=== PATIENT | female | born 1990 | race Hispanic/Latino ===

== ENCOUNTER 2017-10-18 15:18 | Emergency (ER) | payer MEDICAID ==
[2017-10-18] MEDS ORDERED: ACETAMINOPHEN EXTRA STRENGTH 500 MG TABLET ONE (15:39)
[2017-10-18 15:43] LABS: APPEARANCE,URINE SL CLOUDY (CLEAR); BILIRUBIN,URINE NEGATIVE (NEGATIVE); GLUCOSE, URINE (UA) NEGATIVE (NEGATIVE); KETONES,URINE NEGATIVE (NEGATIVE); LEUKOCYTE ESTERASE ,URINE MODERATE (NEGATIVE); NITRATE,URINE NEGATIVE (NEGATIVE); OCCULT BLOOD,URINE SMALL (NEGATIVE); PROTEIN,URINE NEGATIVE (NEGATIVE); UROBILINOGEN,URINE 0.2 mg/dL (0.2-1.0)
[2017-10-18 15:48] LABS: COLOR,URINE STRAW (YELLOW)
[2017-10-18 15:49] LABS: HCG,QUAL RESULT NEGATIVE (NEGATIVE)
[2017-10-18 15:54] LABS: AMPHET/METH SCREEN,URINE NEGATIVE (NEGATIVE); BARBITURATE SCREEN, URINE NEGATIVE (NEGATIVE); BENZODIAZEPINES SCREEN,URINE NEGATIVE (NEGATIVE); CANNABINOID SCREEN,URINE NEGATIVE (NEGATIVE); COCAINE SCREEN,URINE NEGATIVE (NEGATIVE); OPIATE SCREEN,URINE NEGATIVE (NEGATIVE); PHENCYCLIDINE SCREEN,URINE NEGATIVE (NEGATIVE)
[2017-10-18 15:58] LABS: BACTERIA,URINE Few /HPF (None Seen)
[2017-10-18 15:59] LABS: SQUAMOUS EPITHELIAL CELL,UR Few /LPF (0-2)
== END 2017-10-18 16:24 | disposition home or self-care (01) ==
LOC: EDH 15:18
DX: G44.209 Tension-type headache, unspecified, not intractable (principal); N39.0 Urinary tract infection, site not specified; Z88.8 Allergy status to other drugs, medicaments and biological substances
CPT/HCPCS: 80305; 81001; 81025

== ENCOUNTER 2018-01-12 19:37 | Emergency (ER) | payer MEDICAID | END 2018-01-12 20:44 | disposition home or self-care (01) | LOC: EDH 19:37 | DX: G44.209 Tension-type headache, unspecified, not intractable (principal); R03.0 Elevated blood-pressure reading, without diagnosis of hypertension; Z90.49 Acquired absence of other specified parts of digestive tract; Z98.890 Other specified postprocedural states; Z88.8 Allergy status to other drugs, medicaments and biological substances ==

== ENCOUNTER 2018-02-03 08:28 | Emergency (ER) | payer MEDICAID ==
[2018-02-03] MEDS ORDERED: ASPIRIN 325 MG TABLET ONE (08:44)
[2018-02-03 08:51] LABS: BASOPHILS % (AUTO) 0.9 % (0.0-5.0); EOSINOPHILS % (AUTO) 2.3 % (0.0-8.0); LYMPHOCYTES % (AUTO) 34.2 % (21.0-51.0); MEAN CORPUSCULAR HGB CONC 34.6 g/dL (32.0-36.0); MEAN CORPUSCULAR VOLUME 89.6 fL (79-99); MONOCYTES % (AUTO) 6.5 % (3.0-13.0); NEUTROPHILS % (AUTO) 56.1 % (40.0-77.0); PLATELET COUNT (AUTO) 341 K/uL (130-400); RED BLOOD CELL COUNT(AUTO) 4.58 MIL/uL (4.00-5.50); RED CELL DISTRIBUTION WIDTH 12.8 % (11.0-15.5); WHITE BLOOD COUNT (AUTO) 7.9 K/uL (4.8-10.8)
[2018-02-03 09:04] LABS: CREATININE 0.8 mg/dL (0.5-1.5); POTASSIUM 4.9 mmol/L (3.5-5.1)
[2018-02-03 09:05] LABS: INR 0.95 (0.85-1.15); PARTIAL THROMBOPLASTIN TIME 27.5 SEC (26.3-35.5)
[2018-02-03 09:09] LABS: ALBUMIN 3.7 g/dL (3.5-5.0); BILIRUBIN,TOTAL 0.5 mg/dL (0.2-1.0); TOTAL PROTEIN, SERUM 8.1 g/dL (6.0-8.3)
[2018-02-03 09:30] LABS: B-TYPE NATRIURETIC PEPTIDE 47 pg/mL (0-100)
[2018-02-03 10:05] LABS: AMPHET/METH SCREEN,URINE NEGATIVE (NEGATIVE); BARBITURATE SCREEN, URINE POSITIVE (NEGATIVE); BENZODIAZEPINES SCREEN,URINE NEGATIVE (NEGATIVE); CANNABINOID SCREEN,URINE NEGATIVE (NEGATIVE); COCAINE SCREEN,URINE NEGATIVE (NEGATIVE); OPIATE SCREEN,URINE NEGATIVE (NEGATIVE); PHENCYCLIDINE SCREEN,URINE NEGATIVE (NEGATIVE)
== END 2018-02-03 10:55 | disposition home or self-care (01) ==
LOC: EDH 08:28
DX: R07.9 Chest pain, unspecified (principal); Z90.49 Acquired absence of other specified parts of digestive tract; Z88.8 Allergy status to other drugs, medicaments and biological substances
CPT/HCPCS: 36415; 71045; 80053; 80305; 82550; 83880; 84484; 84703; 85025; 85610; 85730; 93005; 94761

== ENCOUNTER 2018-03-20 02:25 | Emergency (ER) | payer MEDICAID ==
[2018-03-20 03:10] LABS: APPEARANCE,URINE Cloudy (CLEAR); BILIRUBIN,URINE Negative (NEGATIVE); COLOR,URINE Yellow (YELLOW); GLUCOSE, URINE (UA) Negative (NEGATIVE); HCG,QUAL RESULT NEGATIVE (NEGATIVE); KETONES,URINE Trace mg/dL (NEGATIVE); LEUKOCYTE ESTERASE ,URINE Large (NEGATIVE); NITRATE,URINE Negative (NEGATIVE); OCCULT BLOOD,URINE Negative (NEGATIVE); PROTEIN,URINE Trace (NEGATIVE)
[2018-03-20 03:18] LABS: AMORPHOUS SEDIMENT,UR Moderate /LPF (None Seen); BACTERIA,URINE Many /HPF (None Seen); MUCUS,URINE Few LPF (None Seen); SQUAMOUS EPITHELIAL CELL,UR Many /HPF (0-2)
[2018-03-20] MEDS ORDERED: CEPHALEXIN 500 MG CAPSULE ONE (03:31)
== END 2018-03-20 03:52 | disposition home or self-care (01) ==
LOC: EDH 02:25
DX: N39.0 Urinary tract infection, site not specified (principal); R42 Dizziness and giddiness; Z98.51 Tubal ligation status; Z94.9 Transplanted organ and tissue status, unspecified; Z98.890 Other specified postprocedural states; Z88.8 Allergy status to other drugs, medicaments and biological substances
CPT/HCPCS: 81001; 81025; 87088

== ENCOUNTER 2018-12-15 17:50 | Emergency (ER) | payer MEDICAID, OTHER | END 2018-12-15 18:24 | disposition home or self-care (01) | LOC: EDH 17:50 | DX: N64.4 Mastodynia (principal); Z90.49 Acquired absence of other specified parts of digestive tract; Z98.51 Tubal ligation status; Z88.8 Allergy status to other drugs, medicaments and biological substances | CPT/HCPCS: 99281 ==

== ENCOUNTER 2019-03-22 11:46 | Emergency (ER) | payer MEDICAID | END 2019-03-22 13:47 | disposition home or self-care (01) | LOC: EDH 11:46 | DX: J20.9 Acute bronchitis, unspecified (principal); Z88.8 Allergy status to other drugs, medicaments and biological substances | CPT/HCPCS: 71046; 81025; 87804 ==

== ENCOUNTER 2019-04-26 12:06 | Emergency (ER) | payer MEDICAID ==
[2019-04-26] MEDS ORDERED: ACETAMINOPHEN EXTRA STRENGTH 500 MG TABLET ONE (12:21)
== END 2019-04-26 13:35 | disposition home or self-care (01) ==
LOC: EDH 12:06
DX: J02.9 Acute pharyngitis, unspecified (principal); H92.09 Otalgia, unspecified ear; Z90.49 Acquired absence of other specified parts of digestive tract; Z88.8 Allergy status to other drugs, medicaments and biological substances
CPT/HCPCS: 87880

== ENCOUNTER 2019-04-27 13:34 | Emergency (ER) | payer MEDICAID | END 2019-04-27 13:57 | disposition home or self-care (01) | LOC: EDH 13:34 | DX: J02.9 Acute pharyngitis, unspecified (principal); R13.10 Dysphagia, unspecified; Z90.49 Acquired absence of other specified parts of digestive tract; Z88.8 Allergy status to other drugs, medicaments and biological substances | CPT/HCPCS: 99281 ==

== ENCOUNTER 2019-06-02 19:31 | Emergency (ER) | payer MEDICAID | END 2019-06-02 20:26 | disposition home or self-care (01) | LOC: EDH 19:31 | DX: M94.0 Chondrocostal junction syndrome [Tietze] (principal); F41.9 Anxiety disorder, unspecified; Z90.49 Acquired absence of other specified parts of digestive tract; Z88.8 Allergy status to other drugs, medicaments and biological substances | CPT/HCPCS: 93005 ==

== ENCOUNTER 2019-06-16 14:25 | Emergency (ER) | payer MEDICAID | END 2019-06-16 15:19 | disposition left against medical advice (07) | LOC: EDH 14:25 | DX: R51 Headache (principal); Z88.8 Allergy status to other drugs, medicaments and biological substances; Z53.21 Procedure and treatment not carried out due to patient leaving prior to being seen by health care provider ==

== ENCOUNTER 2019-06-17 12:33 | Emergency (ER) | payer MEDICAID | END 2019-06-17 13:17 | disposition home or self-care (01) | LOC: EDH 12:33 | DX: M62.838 Other muscle spasm (principal); M54.2 Cervicalgia; Z90.49 Acquired absence of other specified parts of digestive tract; Z88.8 Allergy status to other drugs, medicaments and biological substances | CPT/HCPCS: 99281 ==

== ENCOUNTER 2019-08-23 08:58 | Emergency (ER) | payer MEDICAID | END 2019-08-23 09:35 | disposition home or self-care (01) | LOC: EDH 08:58 | DX: R21 Rash and other nonspecific skin eruption (principal); F41.9 Anxiety disorder, unspecified; Z87.09 Personal history of other diseases of the respiratory system; Z88.8 Allergy status to other drugs, medicaments and biological substances; Z90.49 Acquired absence of other specified parts of digestive tract ==

== ENCOUNTER 2019-09-25 12:23 | Emergency (ER) | payer MEDICAID | END 2019-09-25 13:48 | disposition home or self-care (01) | LOC: EDH 12:23 | DX: M62.838 Other muscle spasm (principal); F41.9 Anxiety disorder, unspecified; Z88.8 Allergy status to other drugs, medicaments and biological substances | CPT/HCPCS: 93005 ==

== ENCOUNTER 2019-09-28 15:32 | Emergency (ER) | payer MEDICAID | END 2019-09-28 17:12 | disposition home or self-care (01) | LOC: EDH 15:32 | DX: M54.6 Pain in thoracic spine (principal); M54.2 Cervicalgia; R20.8 Other disturbances of skin sensation; F41.9 Anxiety disorder, unspecified; Z88.8 Allergy status to other drugs, medicaments and biological substances; Z90.49 Acquired absence of other specified parts of digestive tract | CPT/HCPCS: 99281 ==

== ENCOUNTER 2019-11-26 18:57 | Emergency (ER) | payer MEDICAID ==
[2019-11-26] MEDS ORDERED: DEXAMETHASONE SOD PHOSPHATE 4 MG/ML 1ML VIAL ONE (19:15)
[2019-11-26] MEDS ORDERED: OXYMETAZOLINE HCL SPRAY 15 ML BOTTLE ONE (19:15)
[2019-11-26] MEDS ORDERED: KETOROLAC TROMETHAMINE 60 MG/2 ML VIAL ONE (19:16)
== END 2019-11-26 19:57 | disposition home or self-care (01) ==
LOC: EDH 18:57
DX: F41.9 Anxiety disorder, unspecified (principal); Z90.49 Acquired absence of other specified parts of digestive tract; Z88.5 Allergy status to narcotic agent
CPT/HCPCS: 96372 ×2; 99284; J1100; J1885

== ENCOUNTER 2019-11-29 11:53 | Emergency (ER) | payer MEDICAID | END 2019-11-29 13:39 | disposition home or self-care (01) | LOC: EDH 11:53 | DX: R21 Rash and other nonspecific skin eruption (principal); F41.9 Anxiety disorder, unspecified; Z90.49 Acquired absence of other specified parts of digestive tract; Z88.5 Allergy status to narcotic agent | CPT/HCPCS: 99281 ==

== ENCOUNTER 2020-04-23 15:30 | Emergency (ER) | payer MEDICAID | END 2020-04-23 16:53 | disposition home or self-care (01) | LOC: EDH 15:30 | DX: R06.00 Dyspnea, unspecified (principal); F41.9 Anxiety disorder, unspecified; Z90.49 Acquired absence of other specified parts of digestive tract; Z88.5 Allergy status to narcotic agent | CPT/HCPCS: 71045 ==

== ENCOUNTER 2020-04-23 22:45 | Emergency (ER) | payer MEDICAID ==
[2020-04-23 23:08] LABS: APPEARANCE,URINE Cloudy (CLEAR); BILIRUBIN,URINE Negative (NEGATIVE); COLOR,URINE Yellow (YELLOW); GLUCOSE, URINE (UA) Negative (NEGATIVE); KETONES,URINE Negative (NEGATIVE); LEUKOCYTE ESTERASE ,URINE Moderate (NEGATIVE); NITRATE,URINE Negative (NEGATIVE); OCCULT BLOOD,URINE Negative (NEGATIVE); PROTEIN,URINE Negative (NEGATIVE)
[2020-04-23 23:29] LABS: BACTERIA,URINE Few /HPF (None Seen); MUCUS,URINE Few LPF (None Seen); RBC,URINE 0-1 /HPF (0-1); SQUAMOUS EPITHELIAL CELL,UR Moderate /HPF (0-2)
[2020-04-24] LABS: BASOPHILS % (AUTO) 0.7 % (0.0-5.0); EOSINOPHILS % (AUTO) 2.7 % (0.0-8.0); HEMATOCRIT 38.5 % (36-48); LYMPHOCYTES % (AUTO) 38.7 % (21.0-51.0); MEAN CORPUSCULAR HEMOGLOBIN 30.7 pg (27.0-33.0); MEAN CORPUSCULAR HGB CONC 33.8 g/dL (32.0-36.0); MEAN CORPUSCULAR VOLUME 90.8 fL (79-99); MONOCYTES % (AUTO) 7.9 % (3.0-13.0); NEUTROPHILS % (AUTO) 49.7 % (40.0-77.0); PLATELET COUNT (AUTO) 222 K/uL (130-400); RED BLOOD CELL COUNT(AUTO) 4.24 MIL/uL (4.00-5.50); RED CELL DISTRIBUTION WIDTH 13.5 % (11.0-15.5); WHITE BLOOD COUNT (AUTO) 8.7 K/uL (4.8-10.8)
[2020-04-24 00:12] LABS: CREATININE 0.9 mg/dL (0.5-1.5); POTASSIUM 3.9 mmol/L (3.5-5.1)
[2020-04-24] MEDS ORDERED: IOHEXOL 350 MG/ML 100ML INFUS..BTL IV ONE (00:32)
== END 2020-04-24 02:53 | disposition home or self-care (01) ==
LOC: EDH 22:45
DX: F43.9 Reaction to severe stress, unspecified (principal); F41.9 Anxiety disorder, unspecified; Z90.49 Acquired absence of other specified parts of digestive tract; Z88.5 Allergy status to narcotic agent
CPT/HCPCS: 36415; 71045; 71275; 80048; 81001; 81025; 85025; 87077; 87088; 87186; 93005; 99283; 99285; Q9967

== ENCOUNTER 2020-08-28 11:38 | Emergency (ER) | payer MEDICAID ==
[2020-08-28] MEDS ORDERED: LIDOCAINE HCL-MPF 1% 2ML VIAL ONE (13:07)
[2020-08-28] MEDS ORDERED: CEFTRIAXONE SODIUM 1 GM ONE (13:07)
[2020-08-28] MEDS ORDERED: DEXAMETHASONE SOD PHOSPHATE 10MG/ML 1ML VIAL ONE (13:07)
== END 2020-08-28 13:35 | disposition home or self-care (01) ==
LOC: EDH 11:38
DX: J02.9 Acute pharyngitis, unspecified (principal); Z90.49 Acquired absence of other specified parts of digestive tract; Z88.8 Allergy status to other drugs, medicaments and biological substances
CPT/HCPCS: 81025; 87804 ×2; 87880; 96372 ×2; 99284; J0696; J1100; J3490

== ENCOUNTER 2020-10-29 17:58 | Emergency (ER) | payer MEDICAID ==
[2020-10-29 18:19] LABS: APPEARANCE,URINE Clear (CLEAR); BILIRUBIN,URINE Negative (NEGATIVE); COLOR,URINE Yellow (YELLOW); GLUCOSE, URINE (UA) Negative (NEGATIVE); KETONES,URINE Negative (NEGATIVE); LEUKOCYTE ESTERASE ,URINE Small (NEGATIVE); NITRATE,URINE Negative (NEGATIVE); OCCULT BLOOD,URINE Large (NEGATIVE); PROTEIN,URINE Negative (NEGATIVE); UROBILINOGEN,URINE 0.2 mg/dL (0.2-1.0)
[2020-10-29 18:29] LABS: AMPHET/METH SCREEN,URINE NEGATIVE (NEGATIVE); BARBITURATE SCREEN, URINE NEGATIVE (NEGATIVE); BENZODIAZEPINES SCREEN,URINE NEGATIVE (NEGATIVE); CANNABINOID SCREEN,URINE NEGATIVE (NEGATIVE); COCAINE SCREEN,URINE NEGATIVE (NEGATIVE); OPIATE SCREEN,URINE NEGATIVE (NEGATIVE); PHENCYCLIDINE SCREEN,URINE NEGATIVE (NEGATIVE)
[2020-10-29 18:48] LABS: HCG,QUAL RESULT NEGATIVE (NEGATIVE)
[2020-10-29 19:44] LABS: BACTERIA,URINE Rare /HPF (None Seen); SQUAMOUS EPITHELIAL CELL,UR Few /HPF (0-2)
[2020-10-29 19:45] LABS: RBC,URINE 26-50 /HPF (0-1)
== END 2020-10-29 19:34 | disposition home or self-care (01) ==
LOC: EDH 17:58
DX: G56.02 Carpal tunnel syndrome, left upper limb (principal); F41.9 Anxiety disorder, unspecified; Z88.8 Allergy status to other drugs, medicaments and biological substances; Z86.16 Personal history of COVID-19
CPT/HCPCS: 80305; 81001; 81025

== ENCOUNTER 2021-02-07 15:35 | Emergency (ER) | payer MEDICAID ==
[2021-02-07] MEDS ORDERED: ACETAMINOPHEN EXTRA STRENGTH 500 MG TABLET ONE (17:17)
[2021-02-07] MEDS ORDERED: LIDOCAINE HCL 2% VISCOUS 15 ML UDCUP ONE (17:17)
[2021-02-07] MEDS ORDERED: MAG HYDROX/AL HYDROX/SIMETH ES 30 ML SUSP UDCUP ONE (17:17)
== END 2021-02-07 18:13 | disposition home or self-care (01) ==
LOC: EDH 15:35
DX: J02.9 Acute pharyngitis, unspecified (principal); H92.03 Otalgia, bilateral; Z88.8 Allergy status to other drugs, medicaments and biological substances; F41.9 Anxiety disorder, unspecified; Z86.16 Personal history of COVID-19
CPT/HCPCS: 87880

== ENCOUNTER 2022-03-06 09:23 | Emergency (ER) | payer MEDICAID ==
[~2022-03-06] VITALS: Ht 154.9 cm; Wt 100.2 kg
[2022-03-06] MEDS ORDERED: FLUORESCEIN SODIUM 1 STRIP STRIP ONE (09:52)
[2022-03-06] MEDS ORDERED: TETRACAINE HCL 0.5% 4 ML OPHTH SOLN OP SCH (10:00)
[2022-03-06 10:01] VITALS: BP 121/81
== END 2022-03-06 10:25 | disposition home or self-care (01) ==
LOC: EDH 09:23
DX: S05.91XA Unspecified injury of right eye and orbit, initial encounter (principal); Z88.8 Allergy status to other drugs, medicaments and biological substances; Z90.89 Acquired absence of other organs; Z98.890 Other specified postprocedural states; X58.XXXA Exposure to other specified factors, initial encounter; Y93.89 Activity, other specified; Y92.89 Other specified places as the place of occurrence of the external cause; Y99.8 Other external cause status

== ENCOUNTER 2022-07-06 08:10 | Emergency (ER) | payer MEDICAID ==
[~2022-07-06] VITALS: Ht 154.9 cm; Wt 100.7 kg
[2022-07-06 08:41] LABS: BASOPHILS % (AUTO) 0.9 % (0.0-5.0); HEMATOCRIT 41.1 % (36-48); LYMPHOCYTES % (AUTO) 33.3 % (21.0-51.0); MEAN CORPUSCULAR HGB CONC 34.8 g/dL (32.0-36.0); MONOCYTES % (AUTO) 6.1 % (3.0-13.0); NEUTROPHILS % (AUTO) 55.4 % (40.0-77.0); PLATELET COUNT (AUTO) 374 K/uL (130-400); RED BLOOD CELL COUNT(AUTO) 4.62 MIL/uL (4.00-5.50); RED CELL DISTRIBUTION WIDTH 12.2 % (11.0-15.5); WHITE BLOOD COUNT (AUTO) 8.8 K/uL (4.8-10.8)
[2022-07-06 09:08] LABS: APPEARANCE,URINE CLOUDY (CLEAR); BILIRUBIN,URINE NEGATIVE (NEGATIVE); COLOR,URINE LIGHT-YELLOW (YELLOW); GLUCOSE, URINE (UA) NEGATIVE (NEGATIVE); KETONES,URINE NEGATIVE (NEGATIVE); LEUKOCYTE ESTERASE ,URINE 25 Leu/uL (NEGATIVE); NITRATE,URINE NEGATIVE (NEGATIVE); OCCULT BLOOD,URINE NEGATIVE (NEGATIVE); PH,URINE 6.5 (5.0-8.0); PROTEIN,URINE NEGATIVE (NEGATIVE); UROBILINOGEN,URINE 0.2 mg/dL (0.2-1.0)
[2022-07-06 09:10] LABS: BACTERIA,URINE RARE /HPF (None Seen); HCG,QUALITATIVE URINE NEGATIVE (NEGATIVE); MUCUS,URINE RARE LPF (None Seen); SQUAMOUS EPITHELIAL CELL,UR MANY /HPF (0-2)
[2022-07-06 10:29] LABS: POTASSIUM 4.1 mmol/L (3.5-5.1)
[2022-07-06 10:34] LABS: ALBUMIN 3.7 g/dL (3.5-5.0); TOTAL PROTEIN, SERUM 7.5 g/dL (6.0-8.3)
[2022-07-06 10:39] VITALS: BP 132/63
[2022-07-06] MEDS ORDERED: CEPH500B PO (10:44)
== END 2022-07-06 11:42 | disposition home or self-care (01) ==
LOC: EDH 08:10
DX: N39.0 Urinary tract infection, site not specified (principal); Z88.8 Allergy status to other drugs, medicaments and biological substances; Z90.89 Acquired absence of other organs; Z98.890 Other specified postprocedural states
CPT/HCPCS: 36415; 71045; 80053; 81001; 81025; 84484; 85025; 93005

== ENCOUNTER 2022-10-24 19:37 | Emergency (ER) | payer MEDICAID ==
[~2022-10-24 19:37] MED LIST: CEPH500B PO
== END 2022-10-24 20:12 | disposition left against medical advice (07) ==
LOC: EDH 19:37 → LDH 20:48 → UNDOADMOB 20:48
DX: R07.89 Other chest pain (principal); Z53.21 Procedure and treatment not carried out due to patient leaving prior to being seen by health care provider

== ENCOUNTER 2023-05-27 18:40 | Emergency (ER) | payer MEDICAID ==
[~2023-05-27] VITALS: Ht 154.9 cm; Wt 99.8 kg
[2023-05-27 18:44] VITALS: BP 144/95; PULSE 110; RESP 18; O2SAT 98
[2023-05-27 19:09] LABS: SARS-CoV-2, RNA, NAAT NEGATIVE SARS CoV-2 (NEGATIVE)
[2023-05-27 19:14] LABS: INFLUENZA TYPE A Negative For Type A (NEGATIVE); INFLUENZA TYPE B Negative For Type B (NEGATIVE)
[2023-05-28] MEDS ORDERED: IBUP-2070 PO (16:45)
[2023-05-28] MEDS ORDERED: CYCL10TA16 PO (16:45)
== END 2023-05-27 20:46 | disposition left against medical advice (07) ==
LOC: EDH 18:40
DX: R05.9 Cough, unspecified (principal); R09.81 Nasal congestion; Z53.21 Procedure and treatment not carried out due to patient leaving prior to being seen by health care provider; Z20.822 Contact with and (suspected) exposure to COVID-19
CPT/HCPCS: 99281; 87635; 87804 ×2; C9803

== ENCOUNTER 2023-05-28 12:39 | Emergency (ER) | payer MEDICAID ==
[~2023-05-28] VITALS: Ht 154.9 cm; Wt 106.6 kg
[2023-05-28 13:27] LABS: MEAN CORPUSCULAR HEMOGLOBIN 30.9 pg (27.0-33.0); MEAN CORPUSCULAR HGB CONC 34.6 g/dL (32.0-36.0); MEAN CORPUSCULAR VOLUME 89.3 fL (79-99); RED BLOOD CELL COUNT(AUTO) 4.59 MIL/uL (4.00-5.50); RED CELL DISTRIBUTION WIDTH 12.5 % (11.0-15.5); WHITE BLOOD COUNT (AUTO) 9.6 K/uL (4.8-10.8)
[2023-05-28 13:28] LABS: APPEARANCE,URINE CLEAR (CLEAR); BILIRUBIN,URINE NEGATIVE (NEGATIVE); COLOR,URINE LIGHT-YELLOW (YELLOW); GLUCOSE, URINE (UA) NEGATIVE (NEGATIVE); KETONES,URINE NEGATIVE (NEGATIVE); LEUKOCYTE ESTERASE ,URINE NEGATIVE Leu/uL (NEGATIVE); NITRATE,URINE NEGATIVE (NEGATIVE); OCCULT BLOOD,URINE NEGATIVE (NEGATIVE); PROTEIN,URINE NEGATIVE (NEGATIVE); UROBILINOGEN,URINE 0.2 mg/dL (0.2-1.0)
[2023-05-28 13:30] LABS: ADD UA MICROSCOPIC NO
[2023-05-28 13:41] LABS: CREATININE 0.9 mg/dL (0.5-1.5); POTASSIUM 4.2 mmol/L (3.5-5.1)
[2023-05-28 13:46] LABS: ALBUMIN 3.6 g/dL (3.5-5.0); BILIRUBIN,TOTAL 0.3 mg/dL (0.2-1.0); TOTAL PROTEIN, SERUM 7.8 g/dL (6.0-8.3)
[2023-05-28 16:42] LABS: SARS-CoV-2, RNA, NAAT NEGATIVE SARS CoV-2 (NEGATIVE)
[2023-05-28] MEDS ORDERED: IBUP-2070 PO (16:45)
[2023-05-28] MEDS ORDERED: CYCL10TA16 PO (16:45)
[2023-05-28 16:53] VITALS: BP 126/79; PULSE 75; RESP 19; O2SAT 99
== END 2023-05-28 17:16 | disposition home or self-care (01) ==
LOC: EDH 12:39
DX: S29.012A Strain of muscle and tendon of back wall of thorax, initial encounter (principal); Z90.49 Acquired absence of other specified parts of digestive tract; Z20.822 Contact with and (suspected) exposure to COVID-19; X58.XXXA Exposure to other specified factors, initial encounter; Y93.89 Activity, other specified; Y92.89 Other specified places as the place of occurrence of the external cause; Y99.8 Other external cause status
CPT/HCPCS: 99285; 71045; 87635; 80053; 85027; 83605; 81003; 36415; 93005; C9803

== ENCOUNTER 2023-07-03 10:54 | Emergency (ER) | payer MEDICAID ==
[~2023-07-03] VITALS: Ht 154.9 cm; Wt 90.7 kg
[~2023-07-03 10:54] MED LIST changes: +CYCL10TA16 PO; +IBUP-2070 PO
[2023-07-03 13:30] VITALS: BP 123/75; PULSE 77; RESP 16; O2SAT 99
== END 2023-07-03 13:25 | disposition home or self-care (01) ==
LOC: EDH 10:54
DX: S16.1XXA Strain of muscle, fascia and tendon at neck level, initial encounter (principal); S09.90XA Unspecified injury of head, initial encounter; W01.0XXA Fall on same level from slipping, tripping and stumbling without subsequent striking against object, initial encounter; Y93.89 Activity, other specified; Y92.89 Other specified places as the place of occurrence of the external cause; Y99.8 Other external cause status
CPT/HCPCS: 70450; 72125

== ENCOUNTER 2023-08-15 16:43 | Emergency (ER) | payer MEDICAID, OTHER ==
[~2023-08-15] VITALS: Ht 154.9 cm; Wt 99.8 kg
[2023-08-15 17:32] LABS: RAPID GROUP A STREP negative (NEGATIVE)
[2023-08-15 17:40] LABS: INFLUENZA TYPE A Negative For Type A (NEGATIVE); INFLUENZA TYPE B Negative For Type B (NEGATIVE)
[2023-08-15 17:48] LABS: COVID19 (SARS ANTIGEN RAPID) PRESUMPTIVE NEGATIVE (NEGATIVE)
[2023-08-15] MEDS ORDERED: ACETAMINOPHEN 500 MG TABLET ONE (18:12)
[2023-08-15 18:16] VITALS: TEMP 99.9
[2023-08-15] MEDS ORDERED: LORA10TA7 PO (19:36)
[2023-08-15] MEDS ORDERED: BROM118S48 PO (19:36)
[2023-08-15] MEDS ORDERED: AZIT250T9 PO (19:36)
[2023-08-15] MEDS ORDERED: BENZ200C53 PO (19:36)
[2023-08-15] MEDS ORDERED: FLUT16H NASAL (19:36)
[2023-08-15 19:47] VITALS: BP 127/66; PULSE 94; RESP 16; O2SAT 99
== END 2023-08-15 19:49 | disposition home or self-care (01) ==
LOC: EDH 16:43
DX: J00 Acute nasopharyngitis [common cold] (principal); R05.9 Cough, unspecified; R09.3 Abnormal sputum; Z20.822 Contact with and (suspected) exposure to COVID-19; Z79.899 Other long term (current) drug therapy; Z98.890 Other specified postprocedural states; Z88.8 Allergy status to other drugs, medicaments and biological substances; Z90.49 Acquired absence of other specified parts of digestive tract
CPT/HCPCS: 87426; 87804; 87880

== ENCOUNTER 2024-04-13 20:37 | Emergency (ER) | payer OTHER ==
[~2024-04-13] VITALS: Ht 154.9 cm; Wt 104.3 kg
[~2024-04-13 20:37] MED LIST changes: +AZIT250T9 PO; +BENZ200C53 PO; +BROM118S48 PO; +FLUT16H NASAL; +LORA10TA7 PO
[2024-04-13 22:26] LABS: INFLUENZA TYPE A Negative For Type A (NEGATIVE); INFLUENZA TYPE B Negative For Type B (NEGATIVE)
[2024-04-13 22:28] LABS: RAPID GROUP A STREP negative (NEGATIVE)
[2024-04-13 22:32] LABS: SARS-CoV-2, RNA, NAAT POSITIVE SARS CoV-2 (NEGATIVE)
[2024-04-13 23:17] VITALS: BP 154/88; PULSE 88; RESP 20; O2SAT 100
[2024-04-13] MEDS ORDERED: AZIT250T9 PO (23:28)
[2024-04-13] MEDS ORDERED: METH4TAB3 PO (23:28)
== END 2024-04-13 23:33 | disposition home or self-care (01) ==
LOC: EDH 20:37
DX: U07.1 COVID-19 (principal); Z79.899 Other long term (current) drug therapy; Z90.49 Acquired absence of other specified parts of digestive tract; Z98.890 Other specified postprocedural states; Z88.8 Allergy status to other drugs, medicaments and biological substances
CPT/HCPCS: 87635; 87804; 87880

== ENCOUNTER 2024-08-01 13:16 | Emergency (ER) | payer MEDICAID ==
[~2024-08-01] VITALS: Ht 154.9 cm; Wt 99.8 kg
[~2024-08-01 13:16] MED LIST changes: +METH4TAB3 PO
[2024-08-01] MEDS: acetaMINOPHEN 325 MG/10.15ML UDCUP PO ONE (14:24)
[2024-08-01 14:32] LABS: RAPID GROUP A STREP negative (NEGATIVE)
[2024-08-01 14:34] LABS: SARS-CoV-2, RNA, NAAT NEGATIVE SARS CoV-2 (NEGATIVE)
[2024-08-01 14:41] LABS: INFLUENZA TYPE A Negative For Type A (NEGATIVE); INFLUENZA TYPE B Negative For Type B (NEGATIVE)
[2024-08-01] MEDS ORDERED: AMOX500C2 PO (14:46)
[2024-08-01 14:56] VITALS: BP 133/80; PULSE 99; RESP 18; TEMP 98.3; O2SAT 96
== END 2024-08-01 15:00 | disposition home or self-care (01) ==
LOC: EDH 13:16
DX: J32.9 Chronic sinusitis, unspecified (principal); Z20.822 Contact with and (suspected) exposure to COVID-19; Z90.49 Acquired absence of other specified parts of digestive tract; Z98.51 Tubal ligation status; Z79.899 Other long term (current) drug therapy
CPT/HCPCS: 87635; 87804; 87880

== ENCOUNTER 2025-04-20 09:33 | Emergency (ER) | payer MEDICAID ==
[~2025-04-20] VITALS: Ht 157.5 cm; Wt 99.8 kg
[~2025-04-20 09:33] MED LIST changes: +AMOX500C2 PO; +PANT40TA55 PO
[2025-04-20 10:11] LABS: RAPID GROUP A STREP negative (NEGATIVE)
[2025-04-20 10:15] LABS: SARS-CoV-2, RNA, NAAT NEGATIVE SARS CoV-2 (NEGATIVE)
[2025-04-20 10:21] LABS: INFLUENZA TYPE A Negative For Type A (NEGATIVE); INFLUENZA TYPE B Negative For Type B (NEGATIVE)
--- NOTE | 2025-04-20 10:41 | ERN ---
ED Note History of Present Illness Stated Complaint: SORE THROAT Chief Complaint: Sore Throat Time Seen by MD: 09:57 Dictation: PATIENT IS A 34-YEAR-OLD FEMALE COMING IN WITH FLU-LIKE SYMPTOMS TO INCLUDE BILATERAL EAR PAIN SORE THROAT WITH PAINFUL SWALLOWING BODY ACHES FOR THE LAST 2-3 DAYS. NO NAUSEA VOMITING NO DIARRHEA. NO LOSS OF TASTE OR SMELL. SHE DENIES COUGH STATES HER SISTER GAVE HER DOXYCYCLINE TO TAKE THAT WAS LEFTOVER FROM ANOTHER ILLNESS AND SHE HAS BEEN TAKING THAT FOR TWO DAYS WITHOUT RELIEF. SHE HAS NOT BEEN TO SEE HER DOCTOR AT [facility]. DENIES HEARING LOSS Allergies: Coded Allergies: butorphanol (Verified Allergy, Unknown, 06/13/14) Home Meds Active Scripts Azithromycin (Zithromax Tri-Aj) 500 Mg Tablet, 500 MG PO DAILY for 5 Days, #5 TAB Prov:JAIME SMITH NP 04/20/25 Ciprofloxacin HCl/Hc (Cipro Hc Otic Susp) 0.2 %-1 % Otsus, 3 DROP OTIC BID for 7 Days, #10 ML 0 Refills THREE DROPS EACH EAR WITH COTTON TWICE A DAY FOR SEVEN DAYS. Prov:JAIME SMITH NP 04/20/25 Pantoprazole Sodium (Protonix) 40 Mg Ectab, 1 TAB PO DAILY for 30 Days, #30 TAB 0 Refills Prov:JONATAN PERALES MD 01/03/25 Amoxicillin (Amoxicillin) 500 Mg Capsule, 1 CAP PO TID for 10 Days, #30 CAP 0 Refills Prov:JONATAN PERALES MD 08/01/24 Azithromycin (Azithromycin) 250 Mg Tablet, 250 MG PO DAILY for 5 Days, #6 TAB Take 2 250mg tablets on day 1 then take 1 250mg tablets daily for 4 days. Prov:AGNIESZKA DE LEÓN 04/13/24 Methylprednisolone (Medrol) 4 Mg Tab.ds.pk, 4 MG PO AD, #1 PACK Prov:AGNIESZKA DE LEÓN 04/13/24 Loratadine (Loratadine) 10 Mg Tablet, 10 MG PO DAILY, #7 TAB Prov:KEMI CARTER 08/15/23 Azithromycin (Azithromycin) 250 Mg Tablet, 250 MG PO DAILY for 5 Days, #6 TAB Take 2 now then 1 daily until complete. Prov:KEMI CARTER 08/15/23 D-Methorphan Hb/P-Epd HCl/Bpm (Bromfed Dm Cough Syrup) 2 Mg-30 Mg-10 Mg/5 Ml Syrup, 10 ML PO Q4HPRN PRN for COUGH for 10 Days, #100 ML Prov:EMMAKEMI QUINONEZ [facility] 08/15/23 Benzonatate (Benzonatate) 200 Mg Capsule, 200 MG PO TID PRN for COUGH for 14 Days, #42 CAP Prov:KEMI CARTER [facility] 08/15/23 Fluticasone Propionate (Flonase Nasal [place]) 50 Mcg/Actuation [place], 50 MCG NASAL DAILY PRN for NASAL CONGESTION for 10 Days, #1 SPRAY Prov:KEMI CARTER [facility] 08/15/23 Cyclobenzaprine HCl (Flexeril) 10 Mg Tab, 10 MG PO TID, #9 TAB Prov:KEMI CARTER [facility] 05/28/23 Ibuprofen (Ibuprofen) 600 Mg Tablet, 600 MG PO Q6H PRN for PAIN, #30 TAB Prov:KEMI CARTER [facility] 05/28/23 Cephalexin Monohydrate (Keflex) 500 Mg Cap, 500 MG PO TID for 7 Days, #21 CAP Prov:JONATAN PERALES MD 07/06/22 Past Medical History Past Medical History: No Pertinent History Surgical History: Appendectomy, Other, BTL Surgical History Other: d/c Family History: Negative Social History: Negative, Lives with family History: Not Applicable RN Note Reviewed/Agreed w/PFSH: Yes Review of System Dictation CONSTITUTIONAL: NEGATIVE EXCEPT FOR HPI HEAD/FACE: NEGATIVE EXCEPT FOR HPI EENT: NEGATIVE EXCEPT FOR HPI BILATERAL EAR PAIN/SORE THROAT RESPIRATORY: NEGATIVE EXCEPT FOR HPI GASTROINTESTINAL/ABDOMINAL: NEGATIVE EXCEPT FOR HPI GENITOURINARY: NEGATIVE EXCEPT FOR HPI MUSCULOSKELETAL: NEGATIVE EXCEPT FOR HPI INTEGUMENTARY: NEGATIVE EXCEPT FOR HPI NEUROLOGICAL/PSYCH: NEGATIVE EXCEPT FOR HPI HEMATOLOGIC/LYMPHATIC: NEGATIVE EXCEPT FOR HPI ALL SYSTEMS NEGATIVE, EXCEPT NOTED ABOVE. 13 POINT REVIEW OF SYSTEMS ASSESSED AND ALL NEGATIVE EXCEPT FOR ABOVE. Initial Vital Sign VS Vital Signs Date Time Temp Pulse Resp B/P (MAP) Pulse Ox O2 Delivery O2 Flow Rate FiO2 04/20/25 09:35 98.1 85 16 128/80 100 Room Air 0 04/20/25 09:40 21 Physical Exam Dictation VITAL SIGNS REVIEWED GENERAL APPEARANCE: ALERT, ORIENTED X 3, MILD ACUTE DISTRESS, WELL DEVELOPED, NOURISHED. OBESE HEAD AND FACE: NON-TRAUMATIC. EYES: PERRL, PINK CONJUNCTIVAS, EYELID NO TRAUMA, ANTERIOR CHAMBER WITH ARCUS SENILIS. EARS: PINNAS INTACT AND NO SIGNS OF TRAUMA BILATERAL TMS INTACT. BILATERAL OTIC CANALS WITH ERYTHEMA TENDERNESS, NEGATIVE MASTOID PAIN BILATERALLY NOSE: NO DISCHARGE, NO BLEEDING. OROPHARYNX: MOUTH NORMAL, TONGUE PINK, PHARYNX CLEAR, MILD PHARYNGEAL ERYTHEMA, TONSILS NO EXUDATES, NO ABSCESSES NO ROB, MUCOUS MEMBRANE MOIST [place] MIDLINE, VOICE IS CLEAR NECK: SUPPLE, NON-TENDER, NO THYROMEGALY, NO MASSES, NO JVD, NO BRUITS BREAST:DEFERRED CHEST:NO TENDERNESS, NO CREPITUS, NO PARADOXICAL MOVEMENT, NO RETRACTIONS LUNGS:CLEAR, WELL-VENTILATED, SYMMETRIC, NO RALES, NO WHEEZING, NO RHONCHI, NO STRIDOR, GOOD BREATH SOUNDS BILATERALLY HEART: REGULAR RATE, REGULAR RHYTHM, NO MURMUR, NO GALLOPS VASCULAR: NO PERIPHERAL EDEMA, ABDOMEN: SOFT, POSITIVE BOWEL SOUNDS, NONDISTENDED, NO GUARDING, NONTENDER, NO REBOUND, NO MASSES NO HEPATOMEGALY, NO SPLENOMEGALY, NO REYNOSO'S SIGN, NO HERNIAS. RECTAL: DEFERRED GENITAL: DEFERRED NEUROLOGICAL: NORMAL SPEECH, MOTOR FUNCTION INTACT, SENSORY FUNCTION INTACT MUSCULOSKELETAL: NECK NONTENDER, FULL RANGE OF MOTION, BACK NONTENDER, FULL RANGE OF MOTION, EXTREMITIES: NONTENDER, FULL RANGE OF MOTION SKIN: COLOR PINK, DRY, NO TURGOR, NO RASH, NO LACERATIONS, NO ABRASIONS, NO CONTUSIONS. LYMPHATIC: DEFERRED Results (Laboratory/Radiology) Laboratory/Radiology Laboratory Tests Test 04/20/25 09:55 Influenza Type A Antigen Negative For Type A Influenza Type B Antigen Negative For Type B SARS-CoV-2, RNA, NAAT NEGATIVE SARS CoV-2 Group A Streptococcus Rapid negative (NEGATIVE) Labs Reviewed?: Yes ED Course ED Course Orders Procedure Category Date Status Time Covid Rna Naat LAB 04/20/25 Complete 09:53 Influenza Type A & B, LAB 04/20/25 Complete Rapid 09:53 Rapid (Group A Strep) LAB 04/20/25 Complete 09:53 Vital Signs Date Time Temp Pulse Resp B/P (MAP) Pulse Ox O2 Delivery O2 Flow Rate FiO2 04/20/25 11:18 98.1 80 16 121/76 100 Room Air* 0 21 04/20/25 09:40 98.1 85 16 128/80 100 Room Air* 0 21 04/20/25 09:35 98.1 85 16 128/80 100 Room Air 0 Medical Decision Making [facility] 1108/MEDICAL DECISION-MAKING BASED ON EMPIRIC TREATMENT FOR ACUTE PHARYNGITIS UNSPECIFIED SWABS FOR FLU COVID AND STREP NEGATIVE. ADDITIONALLY PATIENT WILL BE TREATED EMPIRICALLY BILATERAL OTITIS EXTERNA SENT HOME WITH THE ANTIBIOTICS AND FOLLOW UP WITH HER DOCTOR AT [facility]. DX & DISP Disposition: Discharge Departure Impression: Primary Impression: Diffuse otitis externa, bilateral Additional Impression: Acute pharyngitis, unspecified Condition: Stable Scripts Azithromycin (Zithromax Tri-Aj) 500 Mg Tablet 500 MG PO DAILY for 5 Days, #5 TAB Prov: JAIME SMITH NP 04/20/25 Ciprofloxacin HCl/Hc (Cipro Hc Otic Susp) 0.2 %-1 % Otsus 3 DROP OTIC BID for 7 Days, #10 ML 0 Refills THREE DROPS EACH EAR WITH COTTON TWICE A DAY FOR SEVEN DAYS. Prov: JAIME SMITH NP 04/20/25 Additional Instructions: FOLLOW-UP WITH PRIMARY CARE PROVIDER IN 1 TO 2 DAYS. TAKE MEDICATIONS DIRECTED HERE IN THE EMERGENCY ROOM. OKAY TO CONTINUE HOME MEDICATIONS UNLESS OTHERWISE DISCUSSED DURING YOUR VISIT IN THE EMERGENCY ROOM TODAY. RETURN TO YOUR NEAREST EMERGENCY ROOM IF SYMPTOMS WORSEN OR IF THERE IS NO IMPROVEMENT. CALL 911 IF YOU NEED IMMEDIATE ASSISTANCE. TAKE TYLENOL OR MOTRIN [id number] NEEDED AND IF NO CONTRAINDICATIONS ARE PRESENT. INCREASE ORAL HYDRATION. A WOUND CULTURE OR URINE CULTURE WAS ORDERED HERE IN THE EMERGENCY ROOM DEPARTMENT PLEASE FOLLOW-UP WITH PRIMARY CARE PROVIDER AND ADVISE THEM TO GET REPEAT PORTS FROM OUR FACILITY. IF YOU HAD ANY VARSHA WRAP/SPLINTS THAT WERE APPLIED HERE, PLEASE DO NOT REMOVE THEM UNTIL YOU SEE YOUR PRIMARY CARE OR SPECIALTY. STOP DOXYCYCLINE. TAKE AZITHROMYCIN DIRECTED UNTIL GONE. USE EAR DROPS TWICE A DAY WITH COTTON DIRECTED FOR THE NEXT SEVEN DAYS. NO Q-TIPS IN EARS AND FOLLOW UP WITH YOUR PRIMARY CARE DOCTOR AT [facility] IN THE NEXT ONE TWO DAYS FOR MANAGEMENT Referrals: SELF,REFERRAL (PCP) Time of Disposition: 11:10 I have reviewed the case, and I agree with, Diagnosis and Plan JAIME SMTIH NP Apr 20, 2025 10:41 YASMANI CRAWFORD DO Apr 20, 2025 14:21
[2025-04-20] MEDS ORDERED: CIPOTIC OTIC (11:12)
[2025-04-20] MEDS ORDERED: AZIT500T2 PO (11:12)
[2025-04-20 11:18] VITALS: BP 121/76; PULSE 80; RESP 16; TEMP 98.1; O2SAT 100
== END 2025-04-20 11:18 | disposition home or self-care (01) ==
LOC: EDH 09:33
DX: H60.93 Unspecified otitis externa, bilateral (principal); J02.9 Acute pharyngitis, unspecified; Z79.899 Other long term (current) drug therapy; Z90.49 Acquired absence of other specified parts of digestive tract; Z98.51 Tubal ligation status; Z20.822 Contact with and (suspected) exposure to COVID-19
CPT/HCPCS: 87635; 87804; 87880; 99283

== ENCOUNTER 2025-04-25 13:16 | Emergency (ER) | payer MEDICAID ==
[~2025-04-25] VITALS: Ht 154.9 cm; Wt 100.7 kg
[~2025-04-25 13:16] MED LIST changes: +AZIT500T2 PO; +CIPOTIC OTIC
--- NOTE | 2025-04-25 13:56 | ERN ---
General Chief Complaint: Sore Throat Stated Complaint: SORE THROAT Time Seen by MD: 13:28 Source: patient History of Present Illness Initial Comments Ms. Crawford is a 34-year-old female who presented to the ED via private vehicle with complaints of sore throat since 20 April. She says she has been taking azithromycin for the last 1 week without any symptomatic relief she also states that she has altered taste sensation on her tongue. She complaints at her throat is irritating. She denies any cough/runny nose. She also reports that her left ear is under pain. In the ED her temperature is 99.2 F and a vitals are stable. Allergies: Coded Allergies: butorphanol (Verified Allergy, Unknown, 06/13/14) Home Meds Active Scripts Azithromycin (Zithromax Tri-Aj) 500 Mg Tablet, 500 MG PO DAILY for 5 Days, #5 TAB Prov:JAIME SMITH NP 04/20/25 Ciprofloxacin HCl/Hc (Cipro Hc Otic Susp) 0.2 %-1 % Otsus, 3 DROP OTIC BID for 7 Days, #10 ML 0 Refills THREE DROPS EACH EAR WITH COTTON TWICE A DAY FOR SEVEN DAYS. Prov:JAIME SMITH NP 04/20/25 Pantoprazole Sodium (Protonix) 40 Mg Ectab, 1 TAB PO DAILY for 30 Days, #30 TAB 0 Refills Prov:JONATAN PERLAES MD 01/03/25 Amoxicillin (Amoxicillin) 500 Mg Capsule, 1 CAP PO TID for 10 Days, #30 CAP 0 Refills Prov:JONATAN PERALES MD 08/01/24 Azithromycin (Azithromycin) 250 Mg Tablet, 250 MG PO DAILY for 5 Days, #6 TAB Take 2 250mg tablets on day 1 then take 1 250mg tablets daily for 4 days. Prov:AGNIESZKA DE LEÓN 04/13/24 Methylprednisolone (Medrol) 4 Mg Tab.ds.pk, 4 MG PO AD, #1 PACK Prov:AGNIESZKA DE LEÓN 04/13/24 Loratadine (Loratadine) 10 Mg Tablet, 10 MG PO DAILY, #7 TAB Prov:KEMI CARTER 08/15/23 Azithromycin (Azithromycin) 250 Mg Tablet, 250 MG PO DAILY for 5 Days, #6 TAB Take 2 now then 1 daily until complete. Prov:KEMI CARTER 08/15/23 D-Methorphan Hb/P-Epd HCl/Bpm (Bromfed Dm Cough Syrup) 2 Mg-30 Mg-10 Mg/5 Ml Syrup, 10 ML PO Q4HPRN PRN for COUGH for 10 Days, #100 ML Prov:KEMI CARTER [facility] 08/15/23 Benzonatate (Benzonatate) 200 Mg Capsule, 200 MG PO TID PRN for COUGH for 14 Days, #42 CAP Prov:KEMI CARTER [facility] 08/15/23 Fluticasone Propionate (Flonase Nasal [place]) 50 Mcg/Actuation [place], 50 MCG NASAL DAILY PRN for NASAL CONGESTION for 10 Days, #1 SPRAY Prov:EMMAKEMI Garg [facility] 08/15/23 Cyclobenzaprine HCl (Flexeril) 10 Mg Tab, 10 MG PO TID, #9 TAB Prov:EMMAKEMI QUINONEZ [facility] 05/28/23 Ibuprofen (Ibuprofen) 600 Mg Tablet, 600 MG PO Q6H PRN for PAIN, #30 TAB Prov:EMMAKEMI QUINONEZ [facility] 05/28/23 Cephalexin Monohydrate (Keflex) 500 Mg Cap, 500 MG PO TID for 7 Days, #21 CAP Prov:JONATAN PERALES MD 07/06/22 Past Medical History Past Medical History: No Pertinent History Past Surgical History: Appendectomy, Other, BTL Surgical History Other: d/c Family History Family History: Negative Social History Social History: Negative, Lives with family Female( History) History: Not Applicable LMP: Apr 12, 2025 ROS Dictation ROS Dictation CONSTITUTIONAL: No chills, no fever, no weakness, no diaphoresis, no malaise. HEAD/FACE: No signs of trauma. EENT: No eye pain, no blurred vision, no tearing, no double vision, ear pain, no ear discharge, no nose pain, no nasal congestion, throat pain, no throat swelling, no mouth pain. RESPIRATORY: No cough, no orthopnea, no SOB, no stridor, no wheezing. CARDIOVASCULAR: No chest pain, no edema, no palpitations, no syncope. GASTROINTESTINAL/ABDOMINAL: No abdominal pain, no constipation, no diarrhea, no nausea, no vomiting. GENITOURINARY: No abnormal discharge, no dysuria, no frequent urination, no hematuria. No complaints of pain in the genitals. MUSCULOSKELETAL: No back pain, no gout, no joint pain, no joint swelling, no muscle pain, no muscle stiffness, no neck pain. INTEGUMENTARY: No change in color, no change in hair/nails, no dryness, no lesion, no lumps, no rash. NEUROLOGICAL/PSYCH: No anxiety, not depressed, no emotional problem, no headache, no numbness, no pre-existing deficit, no history of seizures, no tremors, no weakness. HEMATOLOGIC/LYMPHATIC: Not anemic, no history of blood clots, no apparent bleeding, no bruising, glands not swollen. All Systems Negative, Except as Noted. Physical Exam Physical Exam Dictation Physical Exam Dictation VITAL SIGNS: Reviewed. GENERAL APPEARANCE: Alert, oriented x3 HEAD AND FACE: Non-traumatic. EYES: PERRL, pink conjunctivas, eyelid no trauma, anterior chamber clear. EARS: Pinnas intact and no signs of trauma or erythema. Ear canals clear and no discharge. TMs no erythema. NOSE: No discharge, no bleeding. OROPHARYNX: Mouth normal, teeth no caries, tongue pink. Pharynx erythematous. Tonsils no exudates, no abscesses noted. Mucous membrane moist. NECK: Supple, non-tender, no thyromegaly, no masses, no JVD, no bruits. BREAST: Deferred. CHEST: No tenderness, no crepitus, no paradoxical movement, no retractions. LUNGS: Clear, well-ventilated, symmetric, no rales, no wheezing, no rhonchi, no stridor, good breath sounds bilaterally. HEART: Regular rate, regular rhythm, no murmur, no gallops. VASCULAR: No peripheral edema. ABDOMEN: Soft, positive bowel sounds, nondistended, no guarding, nontender, no rebound, no masses no hepatomegaly, no splenomegaly, no Sharp's sign, no hernias. RECTAL: Deferred. GENITAL: Deferred. NEUROLOGICAL: Normal speech, gross motor function intact, gross sensory function intact. MUSCULOSKELETAL: Neck nontender, full range of motion, back nontender, full range of motion. EXTREMITIES: Nontender, full range of motion. SKIN: Color pink, dry, no turgor, no rash, no lacerations, no abrasions, no contusions. LYMPHATICS: Deferred. Results Laboratory and Microbiology Lab and Micro Result Laboratory Tests Test 04/25/25 14:10 Group A Streptococcus Rapid negative (NEGATIVE) Labs Reviewed?: Yes MDM MDM: Differential diagnosis: URI, COVID, strep, flu Rationale: Tests considered and ordered secondary to shared decision making include: Previous outside records reviewed: Old ER visits. Risk of complication and/or morbidity or mortality of patient management: None Medications-Per medication reconciliation Need for hospitalization: Patient does not meet criteria for hospitalization. Patient is a 34-year-old female coming in complaining of sore throat. She states that she has has a had this for two weeks has been treated with the antibiotics that has not getting any better. Vital signs within normal limits. Patient was evaluated strep has been negative. Patient will be discharged in stable condition with a diagnosis of pharyngitis did advised her appropriate follow up with PCP in 1-2 days. ED Course Orders Procedure Category Date Status Time Rapid (Group A Strep) LAB 04/25/25 Complete 13:39 Dexamethasone 4mg/Ml PHA 04/25/25 Complete 1ml Vial (Dexametha 14:30 Current Medications Medications (Trade) Dose Ordered Sig/Alexus Route PRN Reason Start Time Stop Time Status Last Admin Dose Admin Dexamethasone Sodium Phosphate (dexaMETHasone 4MG/ML 1ML VIAL) 10 mg ONCE ONCE IM 04/25/25 14:30 04/25/25 14:31 DC 04/25/25 14:48 Vital Signs Date Time Temp Pulse Resp B/P (MAP) Pulse Ox O2 Delivery O2 Flow Rate FiO2 04/25/25 13:17 99.1 104 18 148/99 99 Room Air 0 DX & DISP Disposition: Discharge Departure Impression: Primary Impression: Acute pharyngitis, unspecified Condition: Stable Additional Instructions: FOLLOW-UP WITH PRIMARY CARE PROVIDER IN 1 TO 2 DAYS. TAKE MEDICATIONS DIRECTED HERE IN THE EMERGENCY ROOM. OKAY TO CONTINUE HOME MEDICATIONS UNLESS OTHERWISE DISCUSSED DURING YOUR VISIT IN THE EMERGENCY ROOM TODAY. RETURN TO YOUR NEAREST EMERGENCY ROOM IF SYMPTOMS WORSEN OR IF THERE IS NO IMPROVEMENT. CALL 911 IF YOU NEED IMMEDIATE ASSISTANCE. TAKE TYLENOL [id number] NEEDED AND IF NO CONTRAINDICATIONS ARE PRESENT. INCREASE ORAL HYDRATION. A WOUND CULTURE OR URINE CULTURE WAS ORDERED HERE IN THE EMERGENCY ROOM DEPARTMENT PLEASE FOLLOW-UP WITH PRIMARY CARE PROVIDER AND ADVISE THEM TO GET REPORTS FROM OUR FACILITY. IF YOU HAD ANY VARSHA WRAP/SPLINTS THAT WERE APPLIED HERE, PLEASE DO NOT REMOVE THEM UNTIL YOU SEE YOUR PRIMARY CARE OR SPECIALTY. Referrals: Referrals: SELF,REFERRAL (PCP) AGNIESZKA DUFFY MD, JAMES T MD Time of Disposition: 15:25 LINDY DIAZ MD Apr 25, 2025 13:56 JONATAN PERALES MD Apr 25, 2025 15:26
[2025-04-25 15:34] VITALS: BP 141/87; PULSE 95; RESP 18; TEMP 99; O2SAT 99
== END 2025-04-25 15:36 | disposition home or self-care (01) ==
LOC: EDH 13:16
DX: J02.9 Acute pharyngitis, unspecified (principal); Z79.899 Other long term (current) drug therapy; Z90.49 Acquired absence of other specified parts of digestive tract; Z98.51 Tubal ligation status
CPT/HCPCS: 99283; 87880; 96372; J1100

== ENCOUNTER 2025-04-27 15:39 | Emergency (ER) | payer MEDICAID ==
[~2025-04-27] VITALS: Ht 154.9 cm; Wt 102.1 kg
[2025-04-27 15:40] VITALS: BP 124/81; PULSE 96; RESP 18; TEMP 99.8
[2025-04-27] MEDS ORDERED: FAMC500T8 PO (16:02)
--- NOTE | 2025-04-27 16:03 | ERN ---
ED Note History of Present Illness Stated Complaint: SORE THRAOT Chief Complaint: Sore Throat Time Seen by MD: 15:44 Dictation: PATIENT IS A 34-YEAR-OLD FEMALE COMING IN TODAY WITH A SORE THROAT SHE HAS HAD FOR THE LAST 7-10 DAYS. NO FEVER NO CHILLS. SHE STATES [place] [facility] [place] AND DIAGNOSED WITH PHARYNGITIS AND SENT HOME WITH THE ANTIBIOTICS. SHE STATES SHE HAS NOT GOTTEN ANY BETTER. SHE DOES STATE SHE HAS A NEW BOYFRIEND AND HAS HAD ORAL SEX WITH HIM ONE TIME. THE ORAL SEX WITH SEVERAL DAYS AGO. SHE HAS AN AP[facility]MENT [facility] FRIDAY. Allergies: Coded Allergies: butorphanol (Verified Allergy, Unknown, 06/13/14) Home Meds Active Scripts Famciclovir (Famciclovir) 500 Mg Tablet, 500 MG PO TID for 7 Days, #21 TAB Prov:JAIME SMITH NP 04/27/25 Azithromycin (Zithromax Tri-Aj) 500 Mg Tablet, 500 MG PO DAILY for 5 Days, #5 TAB Prov:JAIME SMITH NP 04/20/25 Ciprofloxacin HCl/Hc (Cipro Hc Otic Susp) 0.2 %-1 % Otsus, 3 DROP OTIC BID for 7 Days, #10 ML 0 Refills THREE DROPS EACH EAR WITH COTTON TWICE A DAY FOR SEVEN DAYS. Prov:JAIME SMITH NP 04/20/25 Pantoprazole Sodium (Protonix) 40 Mg Ectab, 1 TAB PO DAILY for 30 Days, #30 TAB 0 Refills Prov:JONATAN PERALES MD 01/03/25 Amoxicillin (Amoxicillin) 500 Mg Capsule, 1 CAP PO TID for 10 Days, #30 CAP 0 Refills Prov:JONATAN PERALES MD 08/01/24 Azithromycin (Azithromycin) 250 Mg Tablet, 250 MG PO DAILY for 5 Days, #6 TAB Take 2 250mg tablets on day 1 then take 1 250mg tablets daily for 4 days. Prov:AGNIESZKA DE LEÓN 04/13/24 Methylprednisolone (Medrol) 4 Mg Tab.ds.pk, 4 MG PO AD, #1 PACK Prov:AGNIESZKA DE LEÓN 04/13/24 Loratadine (Loratadine) 10 Mg Tablet, 10 MG PO DAILY, #7 TAB Prov:KEMI CARTER 08/15/23 Azithromycin (Azithromycin) 250 Mg Tablet, 250 MG PO DAILY for 5 Days, #6 TAB Take 2 now then 1 daily until complete. Prov:KEMI CARTER [facility] 08/15/23 D-Methorphan Hb/P-Epd HCl/Bpm (Bromfed Dm Cough Syrup) 2 Mg-30 Mg-10 Mg/5 Ml Syrup, 10 ML PO Q4HPRN PRN for COUGH for 10 Days, #100 ML Prov:EMMAKEMI Garg [facility] 08/15/23 Benzonatate (Benzonatate) 200 Mg Capsule, 200 MG PO TID PRN for COUGH for 14 Days, #42 CAP Prov:EMMAKEMI Forest [facility] 08/15/23 Fluticasone Propionate (Flonase Nasal [place]) 50 Mcg/Actuation [place], 50 MCG NASAL DAILY PRN for NASAL CONGESTION for 10 Days, #1 SPRAY Prov:EMMAKEMI QUINONEZ [facility] 08/15/23 Cyclobenzaprine HCl (Flexeril) 10 Mg Tab, 10 MG PO TID, #9 TAB Prov:EMMAKEMI QUINONEZ [facility] 05/28/23 Ibuprofen (Ibuprofen) 600 Mg Tablet, 600 MG PO Q6H PRN for PAIN, #30 TAB Prov:EMMAKEMI QUINONEZ [facility] 05/28/23 Cephalexin Monohydrate (Keflex) 500 Mg Cap, 500 MG PO TID for 7 Days, #21 CAP Prov:JONATAN PERALES MD 07/06/22 Past Medical History Past Medical History: No Pertinent History Surgical History: Appendectomy, Other, BTL Surgical History Other: d/c Family History: Negative Social History: Negative, Lives with family History: Not Applicable RN Note Reviewed/Agreed w/PFSH: Yes Review of System Dictation CONSTITUTIONAL: NEGATIVE EXCEPT FOR HPI HEAD/FACE: NEGATIVE EXCEPT FOR HPI EENT: NEGATIVE EXCEPT FOR HPI A SORE THROAT RESPIRATORY: NEGATIVE EXCEPT FOR HPI GASTROINTESTINAL/ABDOMINAL: NEGATIVE EXCEPT FOR HPI GENITOURINARY: NEGATIVE EXCEPT FOR HPI MUSCULOSKELETAL: NEGATIVE EXCEPT FOR HPI INTEGUMENTARY: NEGATIVE EXCEPT FOR HPI NEUROLOGICAL/PSYCH: NEGATIVE EXCEPT FOR HPI HEMATOLOGIC/LYMPHATIC: NEGATIVE EXCEPT FOR HPI ALL SYSTEMS NEGATIVE, EXCEPT NOTED ABOVE. 13 POINT REVIEW OF SYSTEMS ASSESSED AND ALL NEGATIVE EXCEPT FOR ABOVE. Initial Vital Sign VS Vital Signs Date Time Temp Pulse Resp B/P (MAP) Pulse Ox O2 Delivery O2 Flow Rate FiO2 04/27/25 15:40 99.9 96 18 124/81 97 Room Air Physical Exam Dictation VITAL SIGNS REVIEWED GENERAL APPEARANCE: ALERT, ORIENTED X 3, NO ACUTE DISTRESS, WELL DEVELOPED, NOURISHED. OBESE HEAD AND FACE: NON-TRAUMATIC. EYES: PERRL, PINK CONJUNCTIVAS, EYELID NO TRAUMA, ANTERIOR CHAMBER WITH ARCUS SENILIS. EARS: PINNAS INTACT AND NO SIGNS OF TRAUMA OR ERYTHEMA EAR CANALS CLEAR AND NO DISCHARGE TM NO ERYTHEMA NOSE: NO DISCHARGE, NO BLEEDING. OROPHARYNX: MOUTH NORMAL, TONGUE PINK, PHARYNX CLEAR, MODERATE PHARYNGEAL ERYTHEMA ERYTHEMA, TWO MACULAR LESIONS NOTED TO HARD PALATE. NO VESICULAR LESIONS AT THIS TIME TONSILS NO EXUDATES, NO ABSCESSES NOTED, MUCOUS MEMBRANE MOIST NECK: SUPPLE, NON-TENDER, NO THYROMEGALY, NO MASSES, NO JVD, NO BRUITS BREAST:DEFERRED CHEST:NO TENDERNESS, NO CREPITUS, NO PARADOXICAL MOVEMENT, NO RETRACTIONS LUNGS:CLEAR, WELL-VENTILATED, SYMMETRIC, NO RALES, NO WHEEZING, NO RHONCHI, NO STRIDOR, GOOD BREATH SOUNDS BILATERALLY HEART: REGULAR RATE, REGULAR RHYTHM, NO MURMUR, NO GALLOPS VASCULAR: NO PERIPHERAL EDEMA, ABDOMEN: SOFT, POSITIVE BOWEL SOUNDS, NONDISTENDED, NO GUARDING, NONTENDER, NO REBOUND, NO MASSES NO HEPATOMEGALY, NO SPLENOMEGALY, NO REYNOSO'S SIGN, NO HERNIAS. RECTAL: DEFERRED GENITAL: DEFERRED NEUROLOGICAL: NORMAL SPEECH, MOTOR FUNCTION INTACT, SENSORY FUNCTION INTACT MUSCULOSKELETAL: NECK NONTENDER, FULL RANGE OF MOTION, BACK NONTENDER, FULL RANGE OF MOTION, EXTREMITIES: NONTENDER, FULL RANGE OF MOTION SKIN: COLOR PINK, DRY, NO TURGOR, NO RASH, NO LACERATIONS, NO ABRASIONS, NO CONTUSIONS. LYMPHATIC: DEFERRED Results (Laboratory/Radiology) Labs Reviewed?: Yes ED Course ED Course Vital Signs Date Time Temp Pulse Resp B/P (MAP) Pulse Ox O2 Delivery O2 Flow Rate FiO2 04/27/25 15:40 99.9 96 18 124/81 97 Room Air 1600/PATIENT WILL BE DISCHARGED HOME WITH POSSIBLE SEXUALLY TRANSMITTED DISEASE HERPES WE WILL BE PRESCRIBED [facility] TOLD FOLLOW UP WITH [facility] Medical Decision Making MDM MEDICAL DECISION-MAKING BASED ON PHYSICAL EXAMINATION AND EMPIRIC TREATMENT FOR POSSIBLE HERPES AND SEXUAL TRANSMITTED DISEASE PATIENT WILL BE REFERRED TO [facility] STATES SHE HAS A AN APPOINTMENT ON FRIDAY DISCHARGED HOME WITH [facility] DX & DISP Disposition: Discharge Departure Impression: Primary Impression: Acute pharyngitis, unspecified Additional Impression: Possible exposure to STD Condition: Stable Scripts Famciclovir (Famciclovir) 500 Mg Tablet 500 MG PO TID for 7 Days, #21 TAB Prov: JAIME SMITH NP 04/27/25 Additional Instructions: FOLLOW-UP WITH PRIMARY CARE PROVIDER IN 1 TO 2 DAYS. TAKE MEDICATIONS DIRECTED HERE IN THE EMERGENCY ROOM. OKAY TO CONTINUE HOME MEDICATIONS UNLESS OTHERWISE DISCUSSED DURING YOUR VISIT IN THE EMERGENCY ROOM TODAY. RETURN TO YOUR NEAREST EMERGENCY ROOM IF SYMPTOMS WORSEN OR IF THERE IS NO IMPROVEMENT. CALL 911 IF YOU NEED IMMEDIATE ASSISTANCE. TAKE TYLENOL OR MOTRIN [id number] NEEDED AND IF NO CONTRAINDICATIONS ARE PRESENT. INCREASE ORAL HYDRATION. A WOUND CULTURE OR URINE CULTURE WAS ORDERED HERE IN THE EMERGENCY ROOM DEPARTMENT PLEASE FOLLOW-UP WITH PRIMARY CARE PROVIDER AND ADVISE THEM TO GET REPEAT PORTS FROM OUR FACILITY. IF YOU HAD ANY VARSHA WRAP/SPLINTS THAT WERE APPLIED HERE, PLEASE DO NOT REMOVE THEM UNTIL YOU SEE YOUR PRIMARY CARE OR SPECIALTY. TAKE FAMCICLOVIR DIRECTED UNTIL GONE. FOLLOW UP WITH [facility] IN THE NEXT 1-2 DAYS FOR MANAGEMENT. NO SEX OF ANY KIND UNTIL CLEARED BY YOUR DOCTOR. Referrals: SELF,REFERRAL (PCP) Time of Disposition: 16:00 I have reviewed the case, and I agree with, Diagnosis and Plan JAIME SMITH NP Apr 27, 2025 16:03 YASMANI CRAWFORD DO Apr 28, 2025 09:08
== END 2025-04-27 17:18 | disposition home or self-care (01) ==
LOC: EDH 15:39
DX: J02.9 Acute pharyngitis, unspecified (principal); Z79.624 Long term (current) use of inhibitors of nucleotide synthesis; Z79.899 Other long term (current) drug therapy; Z90.49 Acquired absence of other specified parts of digestive tract; Z98.51 Tubal ligation status
CPT/HCPCS: 99283

== ENCOUNTER 2025-07-20 08:35 | Emergency (ER) | payer MEDICAID ==
[~2025-07-20] VITALS: Ht 154.9 cm; Wt 103.6 kg
[~2025-07-20 08:35] MED LIST changes: +FAMC500T8 PO; +IBUP-1492 PO; -IBUP-2070 PO
[2025-07-20 10:02] LABS: IMMATURE GRANULOCYTE ABSOLUTE 0.03 K/uL (0-1); NUCLEATED RED BLOOD CELLS 0.0 % (0.0-0.19); PLATELET COUNT (AUTO) 399 K/uL (130-400); RED BLOOD CELL COUNT(AUTO) 4.66 MIL/uL (4.00-5.50); RED CELL DISTRIBUTION WIDTH 12.6 % (11.0-15.5); WHITE BLOOD COUNT (AUTO) 8.3 K/uL (4.8-10.8)
[2025-07-20 10:16] LABS: CREATININE 0.9 mg/dL (0.5-1.0); GLOMERULAR FILTR. RATE CALC 84.0 mL/min (>90); GLUCOSE,RANDOM 94.0 mg/dL (70-105); SODIUM SERUM 137.0 mmol/L (136-145); UREA NITROGEN, BLOOD 11.0 mg/dL (7-18)
[2025-07-20] MEDS ORDERED: CYCL5TAB3 PO (10:53)
--- NOTE | 2025-07-20 10:53 | ERN ---
ED Note History of Present Illness Stated Complaint: NECK PAIN Chief Complaint: Neck Pain Time Seen by MD: 09:00 Dictation: 35-year-old female presenting to the emergency department with neck pain after waking up from sleep patient reports stiffness and believes that she fell asleep wrong, patient also reports that she is feeling dizzy with quick movement and putting her head down she has a similar history in the past vertigo. Allergies: Coded Allergies: butorphanol (Verified Allergy, Unknown, 06/13/14) Home Meds Active Scripts Famciclovir (Famciclovir) 500 Mg Tablet, 500 MG PO TID for 7 Days, #21 TAB Prov:JAIME SMITH [facility] 04/27/25 Azithromycin (Zithromax Tri-Aj) 500 Mg Tablet, 500 MG PO DAILY for 5 Days, #5 TAB Prov:JAIME SMITH [facility] 04/20/25 Ciprofloxacin HCl/Hc (Cipro Hc Otic Susp) 0.2 %-1 % Otsus, 3 DROP OTIC BID for 7 Days, #10 ML 0 Refills THREE DROPS EACH EAR WITH COTTON TWICE A DAY FOR SEVEN DAYS. Prov:JAIME SMITHP 04/20/25 Pantoprazole Sodium (Protonix) 40 Mg Ectab, 1 TAB PO DAILY for 30 Days, #30 TAB 0 Refills Prov:JONATAN PERALES MD 01/03/25 Amoxicillin (Amoxicillin) 500 Mg Capsule, 1 CAP PO TID for 10 Days, #30 CAP 0 R efills Prov:JONATAN PERALES MD 08/01/24 Azithromycin (Azithromycin) 250 Mg Tablet, 250 MG PO DAILY for 5 Days, #6 TAB Take 2 250mg tablets on day 1 then take 1 250mg tablets daily for 4 days. Prov:AGNIESZKA DE LEÓN 04/13/24 Methylprednisolone (Medrol) 4 Mg Tab.ds.pk, 4 MG PO AD, #1 PACK Prov:AGNIESZKA DE LEÓN 04/13/24 Loratadine (Loratadine) 10 Mg Tablet, 10 MG PO DAILY, #7 TAB Prov:KEMI CARTERP 08/15/23 Azithromycin (Azithromycin) 250 Mg Tablet, 250 MG PO DAILY for 5 Days, #6 TAB Take 2 now then 1 daily until complete. Prov:KEMI CARTER [facility] 08/15/23 D-Methorphan Hb/P-Epd HCl/Bpm (Bromfed Dm Cough Syrup) 2 Mg-30 Mg-10 Mg/5 Ml Syr up, 10 ML PO Q4HPRN PRN for COUGH for 10 Days, #100 ML Prov:KEMI ACRTER [facility] 08/15/23 Benzonatate (Benzonatate) 200 Mg Capsule, 200 MG PO TID PRN for COUGH for 14 Days, #42 CAP Prov:KEMI CARTER [facility] 08/15/23 Fluticasone Propionate (Flonase Nasal [place]) 50 Mcg/Actuation [place], 50 MCG NASAL DAILY PRN for NASAL CONGESTION for 10 Days, #1 SPRAY Prov:KEMI CARTER [facility] 08/15/23 Cyclobenzaprine HCl (Flexeril) 10 Mg Tab, 10 MG PO TID, #9 TAB Prov:KEMI CARTER [facility] 05/28/23 Ibuprofen (Ibuprofen) 600 Mg Tablet, 600 MG PO Q6H PRN for PAIN, #30 TAB Prov:KEMI CARTER [facility] 05/28/23 Cephalexin Monohydrate (Keflex) 500 Mg Cap, 500 MG PO TID for 7 Days, #21 CAP Prov:JONATAN PERALES MD 07/06/22 Past Medical History Past Medical History: No Pertinent History Surgical History: Appendectomy, Other Surgical History Other: D&C Family History: Negative Social History: Negative, Lives with family History: Not Applicable LMP: Jul 20, 2025 : 3 Para: 2 Aborts: 1 Review of System Dictation Constitutional: Negative for fever,chills, and weight loss Eyes: Negative for injury, pain,redness, and discharge ENT: Negative for injury,pain or swelling Cardiovascular: Negative for chest pain, palpitations, and edema Respiratory: Negative for shortness of breath, cough, and wheezing, Abdomen/GI: Negative for abdominal pain, nausea, vomiting, diarrhea, and constipation Back: Negative for injury and pain : Negative for injury, bleeding and discharge MS/Extremity: Per HPI Skin: Negative for rash, and discoloration Neuro: Per HPI Initial Vital Sign VS Vital Signs Date Time Temp Pulse Resp B/P (MAP) Pulse Ox O2 Delivery O2 Flow Rate FiO2 07/20/25 08:37 98.8 110 18 136/82 99 Room Air Physical Exam Dictation General: awake, alert, NAD Head/Face: Normocephalic, atraumatic Eyes: PERRL, EOMI, vision at baseline ENT: oral cavity clear, TMs clear, no signs of infection Neck: Trachea midline, supple, no nuchal rigidity Cardiovascular: RRR, normal S1/S2, No MRGs, no JVD Respiratory: CTAB, no respiratory distress, No rales or wheezes Abdomen: Soft, non-tender, non-distended, normal bowel sounds, no guarding or rebound. Skin: Warm, dry, normal turgor, no rash MS/Extremity: Pulses equal, no cyanosis, neurovascular intact, FROM Neuro: COAx4, GCS 15, strength 5/5, CN 2-12 intact, normal cerebellar exam, normal gait, Psych: Normal behavior, mood, and affect normal Results (Laboratory/Radiology) Laboratory/Radiology Laboratory Tests Test 07/20/25 09:49 White Blood Count 8.3 K/uL (4.8-10.8) Red Blood Count 4.66 MIL/uL (4.00-5.50) Hemoglobin 14.4 g/dL (12.0-16.0) Hematocrit 41.6 % (36-48) Mean Corpuscular Volume 89.3 fL (79-99) Mean Corpuscular Hemoglobin 30.9 pg (27.0-33.0) Mean Corpuscular Hemoglobin Concent 34.6 g/dL (32.0-36.0) Red Cell Distribution Width 12.6 % (11.0-15.5) Platelet Count 399 K/uL (130-400) Mean Platelet Volume 10.1 fL (7.5-10.5) Immature Granulocyte % (Auto) 0.4 % (0-1) Neutrophils (%) (Auto) 70.3 % (40.0-77.0) Lymphocytes (%) (Auto) 21.6 % (21.0-51.0) Monocytes (%) (Auto) 4.7 % (3.0-13.0) Eosinophils (%) (Auto) 2.0 % (0.0-8.0) Basophils (%) (Auto) 1.0 % (0.0-5.0) Neutrophils # (Auto) 5.8 K/uL (1.8-7.7) Lymphocytes # (Auto) 1.8 K/uL (1.0-4.8) Monocytes # (Auto) 0.4 K/uL (0.1-1.0) Eosinophils # (Auto) 0.17 K/uL (0.00-0.70) Basophils # (Auto) 0.08 K/uL (0.00-0.20) Absolute Immature Granulocyte (auto 0.03 K/uL (0-1) Nucleated Red Blood Cells 0.0 % (0.0-0.19) Sodium Level 137 mmol/L (136-145) Potassium Level 4.2 mmol/L (3.5-5.1) Chloride Level 103 mmol/L (101-111) Carbon Dioxide Level 28 mmol/L (21-32) Blood Urea Nitrogen 11 mg/dL (7-18) Creatinine 0.9 mg/dL (0.5-1.0) Glomerular Filtration Rate Calc 84 mL/min (>90) Random Glucose 94 mg/dL (70-105) Total Calcium 8.7 mg/dL (8.5-10.1) Serum Test, Qualitative NEGATIVE (NEGATIVE) Labs Reviewed?: Yes ED Course ED Course Orders Procedure Category Date Status Time Basic Metabolic Panel LAB 07/20/25 Complete 09: Cbc With Differential LAB 07/20/25 Complete 09:01 Testing, LAB 07/20/25 Complete Serum Hcg 09:01 Meclizine Hcl 25 Mg PHA 07/20/25 Complete (Antivert 25 Mg) 09:24 Ketorolac PHA 07/20/25 Complete Tromethamine 30mg/Ml 09:24 Current Medications Medications (Trade) Dose Ordered Sig/Alexus Route PRN Reason Start Time Stop Time Status Last Admin Dose Admin Ketorolac Tromethamine (toRADol) 30 mg ONCE STAT IM 07/20/25 09:24 07/20/25 09:27 DC 07/20/25 10:22 Meclizine HCl (ANTIvert 25 mg) 25 mg ONCE STAT PO 07/20/25 09:24 07/20/25 09:27 DC 07/20/25 10:21 Vital Signs Date Time Temp Pulse Resp B/P (MAP) Pulse Ox O2 Delivery O2 Flow Rate FiO2 07/20/25 08:37 98.8 110 18 136/82 99 Room Air Medical Decision Making MDM MDM: Differential diagnosis: Rationale: Tests considered and ordered secondary to shared decision making include: Previous outside records reviewed: Old ER visits. Risk of complication and/or morbidity or mortality of patient management: None Medications-Per medication reconciliation Need for hospitalization: Patient does not meet criteria for hospitalization. Need for emergency major/minor surgery: No There are no social concerns with this patient. Prescription drug management Prescriptions will include symptomatic care Patient's prior external medical records from other ER visits were reviewed by me as indicated. Prior testing and results from previous visits were reviewed. Prior tests were taken into account with medical decision making and resource utilization, independent historian/historians were used to obtain complete medical history. I independently interpreted the test that were performed, results were reviewed by me and considered findings on radiology if ordered. Medical management and examination interpretation discussions were had by me with other qualified healthcare professionals as indicated for the patient's care. 35-year-old female with neck sprain and vertigo, stable exam normal neurologic exam electrolytes stable prescriptions given stable for discharge DX & DISP Disposition: Discharge Departure Impression: Primary Impression: Vertigo Additional Impression: Cervical sprain Condition: Stable Scripts Cyclobenzaprine HCl (Cyclobenzaprine HCl) 5 Mg Tablet 5 MG PO BID for 5 Days, #10 TAB Prov: WILLIAM LEWIS MD 07/20/25 Referrals: SELF,REFERRAL (PCP) WILLIAM LEWIS MD Jul 20, 2025 10:53
[2025-07-20 13:12] VITALS: BP 126/78; PULSE 99; RESP 17; TEMP 98.8; O2SAT 98
== END 2025-07-20 13:10 | disposition home or self-care (01) ==
LOC: EDH 08:35
DX: S13.4XXA Sprain of ligaments of cervical spine, initial encounter (principal); R42 Dizziness and giddiness; Z79.624 Long term (current) use of inhibitors of nucleotide synthesis; Z79.899 Other long term (current) drug therapy; Z90.49 Acquired absence of other specified parts of digestive tract; Z88.8 Allergy status to other drugs, medicaments and biological substances; X50.1XXA Overexertion from prolonged static or awkward postures, initial encounter; Y93.84 Activity, sleeping; Y92.89 Other specified places as the place of occurrence of the external cause; Y99.8 Other external cause status
CPT/HCPCS: 99283; 80048; 84703; 85025; 36415; 96372; J1885